=== PATIENT | male | born 1955 | race Caucasian/White ===

== ENCOUNTER 2019-01-21 08:49 | Emergency (ER) | payer OTHER ==
[2019-01-21 09:27] LABS: #Basophils 0.1 thou/uL (0.0-0.2); #Eosinphils 0.1 thou/uL (0.0-0.7); #Lymphocytes 3.2 thou/uL (1.20-3.40); #Monocytes 0.5 thou/uL (0.11-0.59); #Neutrophils 4.4 thou/uL (1.40-6.50); %Basophils 1.5 % (0.0-1.0); %Eosinophils 0.8 % (0.0-10.0); %Lymphocytes 38.3 % (21.0-51.0); %Monocytes 6.3 % (0.0-10.0); %Neutrophils 53.1 % (42.0-75.0); Hemoglobin 18.2 g/dL (14.0-18.0); Mean Corpuscular HGB CONC 33.5 g/dL (32.0-36.0); Mean Corpuscular Hemoglobin 33.4 pg (27.0-31.0); Mean Corpuscular Volume 99.8 fL (78.0-98.0); Mean Platelet Volume 8.7 fL (7.4-10.4); Platelet Count 262 thou/uL (130-400); RBC Distribution Width 11.7 % (11.5-14.5); Red Blood Cell (RBC) Count 5.45 mill/uL (4.70-6.10); White Blood Cell (WBC) Count 8.2 thou/uL (4.8-10.8)
--- NOTE | 2019-01-21 09:32 | RAD ---
RADIOGRAPH CHEST 1 VIEW: HISTORY: 63-year-old male with chest pain. FINDINGS: There are no air space densities, pulmonary edema, pneumothorax, or cardiomegaly. The lateral costop hrenic angles are sharp. IMPRESSION: No acute cardiopulmonary findings. jn [] POS: [facility]
[2019-01-21 10:40] LABS: Albumin 4.3 g/dL (3.4-4.8)
[2019-01-21 10:42] LABS: Calcium 9.7 mg/dL (7.8-10.44); Chloride 103 mmol/L (98-107); Potassium 4.6 mmol/L (3.5-5.1); Sodium 140 mmol/L (136-145)
[2019-01-21 10:43] LABS: Globulin 3.3 g/dL (2.4-3.5); Glucose 107 mg/dL (80-115); Protein, Total 7.6 g/dL (5.8-8.1)
[2019-01-21 10:44] LABS: Anion Gap 12 mmol/L (10-20); Carbon Dioxide 30 mmol/L (23-31)
[2019-01-21 10:45] LABS: Bilirubin, Total 1.1 mg/dL (0.2-1.2)
[2019-01-21 10:46] LABS: Alkaline Phosphatase 53 U/L (40-150); Calc. Creatinine Clearance 0 mL/min (70-130); Estimated GFR-MDRD 54
[2019-01-21 10:47] LABS: BUN (Urea Nitrogen) 19 mg/dL (8.4-25.7)
[2019-01-21 10:48] LABS: AST (SGOT) 20 U/L (5-34)
[2019-01-21 10:49] LABS: ALT (SGPT) 23 U/L (8-55)
[2019-01-21] MEDS ORDERED: Lisinopril 10 MG TAB ONE (11:07)
== END 2019-01-21 11:23 | disposition home or self-care (01) ==
LOC: ERS 08:49
DX: I10 Essential (primary) hypertension (principal); Z79.899 Other long term (current) drug therapy
CPT/HCPCS: 36415; 71045; 80053; 82550; 84484; 85025; 93005; 94760